=== PATIENT | male | born 1985 | race Caucasian/White ===

== ENCOUNTER 2019-12-06 18:44 | Emergency (ER) | payer MEDICAID, OTHER ==
[2019-12-06] MEDS ORDERED: Dexamethasone 10 MG/ML SDV IM ONE (19:15)
--- NOTE | 2019-12-06 19:20 | EDM.PDOC ---
ED HPI GENERAL MEDICAL PROBLEM - General Chief Complaint: Skin Complaint Stated Complaint: skin irritation Time Seen by Provider: 12/06/19 19:08 Source of Information: Reports: Patient History Limitations: Reports: No Limitations - History of Present Illness INITIAL COMMENTS - FREE TEXT/NARRATIVE: History of present illness: [Patient is 34-year-old male presenting with complaint of rash. He states that he noticed the itching and redness this morning around 4 AM. States that his had some similar symptoms. He cannot think of any specific potential cause. Denies using any new soaps or detergents or new foods or other possible exposures at home. He wants to make sure that there is nothing contagious going on that he can potentially past 2 days child. He took Benadryl at home which provided him with significant relief of the itching and improve the appearance of the rash as well. Denies any wheezing, stridor, swelling of the lips tongue or throat, history of anaphylaxis, known previous allergies.] Review of systems: As per history of present illness and below otherwise all systems reviewed and negative. Past medical history: As per history of present illness and as reviewed below otherwise noncontributory. Surgical history: As per history of present illness and as reviewed below otherwise noncontributory. Social history: No reported history of drug or alcohol abuse. Family history: As per history of present illness and as reviewed below otherwise noncontributory. Physical exam: General: Awake, alert, no acute distress, A&O X3. HEENT: Atraumatic, normocephalic, pupils reactive, negative for conjunctival pallor or scleral icterus, mucous membranes moist, throat clear, neck supple, nontender, trachea midline. Lungs: Clear to auscultation, breath sounds equal bilaterally, chest nontender. Heart: RRR, normal S1S2, no JVD. Abdomen: Soft, nondistended, nontender. Negative for masses or hepatosplenomegaly. Negative for costovertebral tenderness. Pelvis: Stable nontender. Genitourinary: Deferred. Rectal: Deferred. Extremities: Atraumatic, no edema, Neurovascular unremarkable. Neuro: Motor and sensory grossly intact throughout. Exam nonfocal. Skin: diffuse blotchy hives over trunk and extremities. Diagnostics: [] Therapeutics: [] Impression: [] Plan: [] Definitive disposition and diagnosis as appropriate pending reevaluation and review of above. - Related Data Allergies Allergy/AdvReac Type Severity Reaction Status Date / Time No Known Allergies Allergy Verified 12/06/19 19:00 Home Meds: Home Meds . [No Known Home Meds] 12/06/19 [History] Past Medical History - Past Health History Medical/Surgical History: Denies Medical/Surgical History Social & Family History - Tobacco Use Smoking Status *Q: Never Smoker Second Hand Smoke Exposure: No - Caffeine Use Caffeine Use: Reports: None - Recreational Drug Use Recreational Drug Use: No ED ROS GENERAL - Review of Systems Review Of Systems: Comprehensive ROS is negative, except as noted in HPI. ED EXAM, SKIN/RASH Exam: See Below (see h and p) Course - Vital Signs Text/Narrative:: Patient received IM Decadron here in the ED. I encouraged him to continue using Benadryl at home as needed to help with itching and redness. 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 No evidence for anaphylaxis. Discussed return precautions which include difficulty breathing, stridor, intractable nausea and vomiting, swelling of the lips tongue or throat, etc. Patient understands this plan and is agreeable with it. Well-appearing and stable at discharge. Last Recorded V/S: Last Vital Signs Temp 36.6 C 12/06/19 18:57 Pulse 85 12/06/19 18:57 Resp 17 12/06/19 18:57 BP 126/72 12/06/19 18:57 Pulse Ox 96 12/06/19 18:57 - Orders/Labs/Meds Orders: Active Orders 24 hr Category Date Time Status dexAMETHasone [Dexamethasone] Med 12/06/19 19:15 Once 10 mg IM ONETIME ONE Departure - Departure Time of Disposition: 19:19 Disposition: Home, Self-Care 01 Condition: Good Clinical Impression: Hives, Allergic reaction - Discharge Information Instructions: Hives Referrals: PCP,None [Primary Care Provider] - Additional Instructions: Follow-up with primary care doctor. Use Benadryl as needed and directed at home to help with rash and itching. Return to the ER with any new or worsening symptoms. The following information is given to patients seen in the emergency department who are being discharged to home. This information is to outline your options for follow-up care. We provide all patients seen in our emergency department with a follow-up referral. The need for follow-up, as well as the timing and circumstances, are variable depending upon the specifics of your emergency department visit. If you don't have a primary care physician on staff, we will provide you with a referral. We always advise you to contact your personal physician following an emergency department visit to inform them of the circumstance of the visit and for follow-up with them and/or the need for any referrals to a consulting specialist. The emergency department will also refer you to a specialist when appropriate. This referral assures that you have the opportunity for follow-up care with a specialist. All of these measure are taken in an effort to provide you with optimal care, which includes your follow-up. Under all circumstances we always encourage you to contact your private physician who remains a resource for coordinating your care. When calling for follow-up care, please make the office aware that this follow-up is from your recent emergency room visit. If for any reason you are refused follow-up, please contact the [facility] Emergency Department at and asked to speak to the emergency department charge nurse. Sepsis Event Note (ED) - Evaluation Sepsis Screening Result: No Definite Risk - Focused Exam Vital Signs: Vital Signs Temp Pulse Resp BP Pulse Ox 12/06/19 18:57 36.6 C 85 17 126/72 96 - My Orders Last 24 Hours: My Active Orders 12/06/19 19:15 dexAMETHasone [Dexamethasone] 10 mg IM ONETIME ONE - Assessment/Plan Last 24 Hours: My Active Orders 12/06/19 19:15 dexAMETHasone [Dexamethasone] 10 mg IM ONETIME ONE
== END 2019-12-06 19:35 | disposition home or self-care (01) ==
LOC: MW.ED 18:44
DX: L50.0 Allergic urticaria (principal)
CPT/HCPCS: 96372; 99282; J1100

== ENCOUNTER 2024-07-10 21:43 | Emergency (ER) | payer OTHER ==
[2024-07-10] MEDS ORDERED: Sodium Chloride 0.9% 2.5 ML Syringe FLUSH PRN (22:54)
[2024-07-10] MEDS ORDERED: Sodium Chloride 0.9% 10 ML Syringe FLUSH PRN (22:54)
[2024-07-10] MEDS: Sodium Chloride 0.9% 1,000 ML IV ONE (23:33)
[2024-07-10] MEDS: Ketorolac 30 MG/ML SDV IVPUSH ONE (23:33)
[2024-07-10] MEDS: Famotidine 20 MG/2 ML SDV IVPUSH ONE (23:33)
[2024-07-10] MEDS: Ondansetron 4 MG/2 ML SDV IVPUSH ONE (23:33)
[2024-07-10 23:40] LABS: BASOPHILS ABSOLUTE AUTO 0.04 K/uL (0.00-0.20); BASOPHILS PERCENT AUTO 0.5 % (0.0-1.0); EOSINOPHILS ABSOLUTE AUTO 0.08 K/uL (0.00-0.45); EOSINOPHILS PERCENT AUTO 0.9 % (0.0-6.0); HEMATOCRIT 43.9 % (42.0-52.0); IMMATURE GRAN ABSOLUTE AUTO 0.01 K/uL (0.00-0.05); IMMATURE GRAN PERCENT AUTO 0.1 % (0.0-0.4); LYMPHOCYTES ABSOLUTE AUTO 1.54 K/uL (1.00-4.80); LYMPHOCYTES PERCENT AUTO 17.4 % (24.0-44.0); MEAN CORPUSCULAR HEMOGLOBIN 30.4 pg (28.0-32.0); MEAN CORPUSCULAR HGB CONC 34.2 g/dL (32.0-36.0); MEAN CORPUSCULAR VOLUME 88.9 fL (83.0-99.0); MONOCYTES ABSOLUTE AUTO 0.76 K/uL (0.00-0.80); MONOCYTES PERCENT AUTO 8.6 % (0.0-8.0); NEUTROPHILS ABSOLUTE AUTO 6.44 K/uL (1.80-7.70); NEUTROPHILS PERCENT AUTO 72.5 % (41.0-71.0); PLATELET COUNT,PLT 224 K/uL (150-400); RED BLOOD CELL COUNT 4.94 M/uL (4.52-5.90); WHITE BLOOD CELL COUNT,WBC 8.87 K/uL (3.9-11.3)
[2024-07-10] MEDS: Iopamidol 755 MG/ML 500 ML Multipack Bottle IVPUSH ONE (23:42)
[2024-07-11 00:01] LABS: A/G RATIO 1.1 (0.9-1.6); BILIRUBIN TOTAL 1.1 mg/dL (0.2-1.0); CALCIUM 9.1 mg/dL (8.5-10.1); CARBON DIOXIDE,CO2 30.3 mmol/L (21.0-32.0); CREATININE 0.9 mg/dL (0.8-1.3); EST CRCL DRUG DOSING (CG) 121.76 mL/min; MAGNESIUM 2.1 mg/dL (1.8-2.4); POTASSIUM,K 4.2 mmol/L (3.5-5.1); PROTEIN TOTAL,TP 7.5 g/dL (6.4-8.2)
[2024-07-11] MEDS: Morphine 4 MG/ML Syringe IVPUSH ONE (01:48)
[2024-07-11] MEDS: Alum Hydrox/Mag Hydrox/Simeth 15 ML, Metoclopramide 5 MG, Lidocaine 2% 5 ML PO ONE (01:49)
[2024-07-11] MEDS: Diazepam 5 MG Tab PO STA (03:34)
== END 2024-07-11 03:37 | disposition home or self-care (01) ==
LOC: MW.ED 21:43
DX: K22.2 Esophageal obstruction (principal); K22.81 Esophageal polyp; F17.210 Nicotine dependence, cigarettes, uncomplicated
CPT/HCPCS: 36415; 74177; 80053; 83690; 83735; 85025; 96361; 96374; 96375; 99284; A9270; J1885; J2270; J2405; J7030; Q9967

== ENCOUNTER 2024-07-23 08:13 | Day surgery (SDC) | payer OTHER ==
[~2024-07-23 08:13] MED LIST: propofoL 500 MG/50 ML 50 ML ONE
[2024-07-23] MEDS: Lactated Ringers 1,000 ML IV SCH (08:50)
[2024-07-23] MEDS ORDERED: Glycopyrrolate 0.2 MG/ML SDV ONE (09:32)
[2024-07-23] MEDS ORDERED: fentaNYL 100 MCG/2 ML SDV ONE (09:32)
[2024-07-23] MEDS ORDERED: Ondansetron 4 MG/2 ML SDV ONE (09:46)
[2024-07-23] MEDS ORDERED: Lactated Ringers 1,000 ML IV SCH (10:15)
== END 2024-07-23 10:45 | disposition home or self-care (01) ==
LOC: MW.SDS 08:13
PROVIDERS: ATTEND Surgery
DX: K29.50 Unspecified chronic gastritis without bleeding (principal); B96.81 Helicobacter pylori [H. pylori] as the cause of diseases classified elsewhere; R13.10 Dysphagia, unspecified; K20.0 Eosinophilic esophagitis; K21.9 Gastro-esophageal reflux disease without esophagitis
CPT/HCPCS: 43239; J2405; J2704; J3010; J7120; 00731; J1596

== ENCOUNTER 2024-10-21 18:18 | Emergency (ER) | payer OTHER ==
[2024-10-21 20:15] LABS: BASOPHILS ABSOLUTE AUTO 0.04 K/uL (0.00-0.20); BASOPHILS PERCENT AUTO 0.8 % (0.0-1.0); EOSINOPHILS ABSOLUTE AUTO 0.02 K/uL (0.00-0.45); EOSINOPHILS PERCENT AUTO 0.4 % (0.0-6.0); IMMATURE GRAN ABSOLUTE AUTO 0.01 K/uL (0.00-0.05); IMMATURE GRAN PERCENT AUTO 0.2 % (0.0-0.4); LYMPHOCYTES ABSOLUTE AUTO 1.20 K/uL (1.00-4.80); LYMPHOCYTES PERCENT AUTO 23.3 % (24.0-44.0); MEAN PLATELET VOLUME 8.9 fL (9.4-12.4); MONOCYTES ABSOLUTE AUTO 0.52 K/uL (0.00-0.80); MONOCYTES PERCENT AUTO 10.1 % (0.0-8.0); NEUTROPHILS ABSOLUTE AUTO 3.35 K/uL (1.80-7.70); NEUTROPHILS PERCENT AUTO 65.2 % (41.0-71.0); NRBC ABSOLUTE 0.00 K/uL (0.00-0.02); NRBC PERCENT 0.0 /100WBC (0.0-0.2); PLATELET COUNT,PLT 267 K/uL (150-400); RED BLOOD CELL COUNT 5.59 M/uL (4.52-5.90); WHITE BLOOD CELL COUNT,WBC 5.14 K/uL (3.9-11.3)
[2024-10-21 20:43] LABS: A/G RATIO 1.1 (0.9-1.6); ALANINE AMINOTRANSFERASE,ALT 54.0 IU/L (14-63); ASPARTATE AMNIOTRANSFERASE,AST 55.0 IU/L (15-37); BILIRUBIN TOTAL 2.1 mg/dL (0.2-1.0); BLOOD UREA NITROGEN,BUN 8.0 mg/dL (7.0-18.0); CARBON DIOXIDE,CO2 29.4 mmol/L (21.0-32.0); CHLORIDE,CL 98.0 mmol/L (98-107); CREATININE 1.1 mg/dL (0.8-1.3); EST CRCL DRUG DOSING (CG) 94.55 mL/min; ETHANOL BLOOD MEDICAL 236.0 mg/dL; GLUCOSE RANDOM 137.0 mg/dL (74-106); POTASSIUM,K 3.4 mmol/L (3.5-5.1); PROTEIN TOTAL,TP 8.3 g/dL (6.4-8.2); SODIUM,NA 141.0 mmol/L (136-148)
[2024-10-21 20:47] LABS: ESTIMATED GFR 89.0 mL/min (>60)
[2024-10-22] MEDS: PHENobarbital Sodium 130 MG/ML SDV IM ONE (00:04)
== END 2024-10-22 00:12 ==
LOC: MW.ED 18:18
DX: F10.130 Alcohol abuse with withdrawal, uncomplicated (principal); Y90.9 Presence of alcohol in blood, level not specified
CPT/HCPCS: 36415; 80053; 80307; 82248; 85025; 96372; 99284; J2560